=== PATIENT | male | born 1980 ===

== ENCOUNTER 2017-09-05 18:36 | Emergency (ER) | payer BC, SELFPAY ==
[2017-09-05] MEDS ORDERED: LIDOCAINE 1% 20 ML MDV ONE (19:05)
[2017-09-05] MEDS ORDERED: LIDOCAINE 1% W/EPI 1:100,000 MDV 50 ML VIAL ONE (19:13)
[2017-09-05] MEDS ORDERED: TETANUS & DIPHTHERIA TOX,ADULT 0.5 ML VIAL ONE (19:34)
--- NOTE | 2017-09-05 20:04 | ER ---
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 Transition of care: patient was not received from another setting of care. Complicating Factors: There are no complicating factors for this patient. Onset of symptoms was September 05, 2017. Initial Sepsis Screen: Does the patient meet any 2 criteria? No. Patient's initial sepsis screen is negative. Does the patient have a suspected source of infection? No. Patient's initial sepsis screen is negative. Care prior to arrival: None. 18:40 Method Of Arrival: Ambulatory la1 18:40 Acuity: KALE 3 la1 Historical: - Allergies: 18:42 No Known Allergies; la1 - PMHx: 18:42 Kidney stones; la1 - Immunization history:: Adult Immunizations up to date. - Social history:: Smoking status: Patient uses tobacco products, smokes one-half pack cigarettes per day, Patient/guardian denies using alcohol, IV drugs, The patient lives with family. - Family history:: not pertinent. Screenin:29 Abuse screen: Denies threats or abuse. Denies injuries from another. Nutritional lp1 screening: No deficits noted. Tuberculosis screening: No symptoms or risk factors identified. Fall Risk None identified. Assessment: 19:28 General: Appears in no apparent distress. Behavior is calm, cooperative, appropriate lp1 for age. Pain: Denies pain. Neuro: Level of Consciousness is awake, alert, obeys commands. Cardiovascular: Patient's skin is warm and dry. Respiratory: Respiratory effort is even, unlabored. GI: No signs and/or symptoms were reported involving the gastrointestinal system. : No signs and/or symptoms were reported regarding the genitourinary system. EENT: No signs and/or symptoms were reported regarding the EENT system. Derm: Wound noted dorsal aspect of left forearm. Musculoskeletal: Circulation, motion, and sensation intact. Injury Description: Laceration is jagged, 2.6 to 7.5 cm long, not bleeding. Vital Signs: 18:41 BP 159 / 81; Pulse 81; Resp 19; Temp 97.1; Pulse Ox 100% on R/A; Weight 79.38 kg; la1 Height 5 ft. 11 in. (180.34 cm); 19:29 BP 132 / 85; Pulse 61; Resp 16; Pulse Ox 99% on R/A; lp1 18:41 Body Mass Index 24.41 (79.38 kg, 180.34 cm) la1 ED Course: 18:38 Patient arrived in ED. rg4 18:41 Triage completed. la1 18:42 Arm band placed on left wrist. la1 18:56 Olive Hopkins MD is Attending Physician. ma2 19:26 Haydee Davis, RN is Primary Nurse. lp1 19:29 Patient has correct armband on for positive identification. lp1 19:43 Assist provider with laceration repair on dorsal aspect of left forearm that was lp1 between 2.6 to 7.5 cm using sutures. Set up tray. Performed by Olive Hopkins MD Dressed with 4X4s, Neosporin, Patient tolerated well. 19:44 Patient did not have IV access during this emergency room visit. lp1 Administered Medications: 19:28 Drug: Lidocaine-Epinephrine -1%: (1:100,000) 1 vials Volume: 20 ml; Route: Infiltration;lp1 19:43 Drug: Tetanus-Diphtheria Toxoid Adult 0.5 ml {[employer]: [employer]. Exp: lp1 01/21/2019. Lot #: [id number]. } Route: IM; Site: right deltoid; 20:09 Follow up: Response: No adverse reaction lp1 Outcome: 20:03 Discharge ordered by . ma2 20:09 Discharged to home ambulatory, with friend. lp1 20:09 Condition: good 20:09 Discharge instructions given to patient, Instructed on discharge instructions, follow up and referral plans. wound care, Demonstrated understanding of instructions, follow-up care. 20:09 Patient left the ED. lp1 Signatures: Haydee Davis, RN JOHN lp1 Kostas Ballard RN RN la1 Edwige Davalos rg4 Olive Hopkins MD MD ma2
--- NOTE | 2017-09-05 20:04 | EDPHYS ---
Physician Documentation [facility] Name: Oliverio Curtis Age: 37 yrs Sex: Male : 1980 Arrival Date: 09/05/2017 Time: 18:38 Bed 7 Private MD: ED Physician Olive Hopkins HPI: 09/05 19:58 This 37 yrs old Unknown Male presents to ER via Ambulatory with complaints of ma2 Laceration To Hand. 19:58 The patient has a laceration occurred at work. The laceration(s) is(are) located on the ma2 left arm. Onset: The symptoms/episode began/occurred suddenly, gradually, 1 hour(s) ago. Associated signs and symptoms: Pertinent negatives: dizziness, heavy bleeding, loss of consciousness, suspected foreign body. The patient has not experienced similar symptoms in the past. Historical: - Allergies: 18:42 No Known Allergies; la1 - PMHx: 18:42 Kidney stones; la1 - Immunization history:: Adult Immunizations up to date. - Social history:: Smoking status: Patient uses tobacco products, smokes one-half pack cigarettes per day, Patient/guardian denies using alcohol, IV drugs, The patient lives with family. - Family history:: not pertinent. ROS: 19:58 Constitutional: Negative for fever, chills, and weight loss, Eyes: Negative for injury, ma2 pain, redness, and discharge, MS/Extremity: Negative for injury and deformity, Neuro: Negative for headache, weakness, numbness, tingling, and seizure, Psych: Negative for depression, anxiety, suicide ideation, homicidal ideation, and hallucinations. 19:58 Skin: Positive for laceration(s). Exam: 19:58 Constitutional: This is a well developed, well nourished patient who is awake, alert, ma2 and in no acute distress. Head/Face: Normocephalic, atraumatic. Skin: Warm, dry with normal turgor. Normal color with no rashes, no lesions, and no evidence of cellulitis. MS/ Extremity: Pulses equal, no cyanosis. Neurovascular intact. Full, normal range of motion. Neuro: Awake and alert, GCS 15, oriented to person, place, time, and situation. Cranial nerves II-XII grossly intact. Motor strength 5/5 in all extremities. Sensory grossly intact. Cerebellar exam normal. Normal gait. Psych: Awake, alert, with orientation to person, place and time. Behavior, mood, and affect are within normal limits. 19:58 Skin: right forearm laceration, flap long with 2x2 cm, flap base is <05 cm, yet looks pink . Vital Signs: 18:41 BP 159 / 81; Pulse 81; Resp 19; Temp 97.1; Pulse Ox 100% on R/A; Weight 79.38 kg; la1 Height 5 ft. 11 in. (180.34 cm); 19:29 BP 132 / 85; Pulse 61; Resp 16; Pulse Ox 99% on R/A; lp1 18:41 Body Mass Index 24.41 (79.38 kg, 180.34 cm) la1 Laceration: 19:58 Wound Repair of 2cm ( 0.8in ) subcutaneous laceration to left arm. Distal ma2 neuro/vascular/tendon intact. Anesthesia: Local anesthetic administered with 10 mls of 1% lidocaine w/ Epi. Skin closed with 7 3-0 Prolene using simple sutures and sterile technique. Dressed with Bacitracin. Patient tolerated well. MDM: 18:56 Patient medically screened. ma2 19:58 Differential diagnosis: superficial laceration. Data reviewed: vital signs, nurses ma2 notes, EMS record. Counseling: I had a detailed discussion with the patient and/or guardian regarding: the historical points, exam findings, and any diagnostic results supporting the discharge/admit diagnosis, the presence of at least one elevated blood pressure reading (>120/80) during this emergency department visit, the need for outpatient follow up. Response to treatment: the patient's symptoms have resolved after treatment. 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 Exp: lp1 01/21/2019. Lot #: [id number]. } Route: IM; Site: right deltoid; 20:09 Follow up: Response: No adverse reaction lp1 Disposition: 09/05/17 20:03 Discharged to Home. Impression: Other superficial injuries of forearm. - Condition is Stable. - Discharge Instructions: Laceration Care, Adult, [id number]. - Medication Reconciliation Form, Thank You Letter, Antibiotic Education, Prescription Opioid Use form. - Follow up: Private Physician; When: Tomorrow; Reason: Continuance of care. - Problem is new. - Symptoms have improved. - Notes: remove sutures in 10 days,see your doctor if you get skin redness or swelling or infection Signatures: Haydee Davis, RN RN lp1 Kostas Ballard RN RN la1 Olive Hopkins MD MD ma2 Corrections: (The following items were deleted from the chart) 20:09 20:03 09/05/2017 20:03 Discharged to Home. Impression: Other superficial injuries of lp1 forearm. Condition is Stable. Forms are Medication Reconciliation Form, Thank You Letter, Antibiotic Education, Prescription Opioid Use. Follow up: Private Physician; When: Tomorrow; Reason: Continuance of care. Problem is new. Symptoms have improved. ma2
== END 2017-09-05 20:09 | disposition home or self-care (01) ==
LOC: ER 18:36
PROC: 0JQH0ZZ Repair Left Lower Arm Subcutaneous Tissue and Fascia, Open Approach (ICD-10-PCS; principal; 2017-09-05)
DX: S41.112A Laceration without foreign body of left upper arm, initial encounter (principal); F17.210 Nicotine dependence, cigarettes, uncomplicated; W45.8XXA Other foreign body or object entering through skin, initial encounter; Y93.9 Activity, unspecified; Y92.89 Other specified places as the place of occurrence of the external cause; Z23 Encounter for immunization
CPT/HCPCS: 90714; 99283